=== PATIENT | male | born 1990 | race Caucasian/White ===

== ENCOUNTER 2019-08-02 10:30 | Inpatient (IN) | payer MEDICAID ==
[~2019-08-02] VITALS: Ht 167.6 cm; Wt 121.6 kg
[2019-08-02 10:39] VITALS: BP 141/105
--- NOTE | 2019-08-02 10:40 | NUR ---
Patient ambulated to bed 11. RN evaluating patient at bedside.
[2019-08-02] MEDS ORDERED: NACL 0.9% 2,000 ML IV ONE (10:44)
--- NOTE | 2019-08-02 10:55 | NUR ---
ERMD AT BEDSIDE
--- NOTE | 2019-08-02 10:55 | NUR ---
29 Y/O M C/C POLYDIPSIA X 3 WEEKS; POLYURIA X 2 WEEKS. PT PRESENTS IN NO DISTRESS, BLOOD SUGAR CRITICAL IN TRIAGE, ERMD NOTIFIED. DENIES FAMILY HX OF DM. NKA. NO HX. NO RX. NO NVD. SIDE RAIL X1.
--- NOTE | 2019-08-02 11:00 | NUR ---
LAB AT BEDSIDE
[2019-08-02] MEDS ORDERED: DICYCLOMINE HCL LIQUID 20 MG, ALUMINUM HYD/MAG/SIMETHICONE 30 ML, LIDOCAINE VISCOUS 2% ... PO ONE ×3 (11:05)
--- NOTE | 2019-08-02 11:10 | NUR ---
RT AT BEDSIDE
[2019-08-02 11:15] LABS: BASOPHILS # (AUTO) 0.1 K/uL (0.00-0.22); BASOPHILS % (AUTO) 1.6 % (0.0-2.0); EOSINOPHILS % (AUTO) 0.9 % (0.0-4.0); HEMATOCRIT 45.3 % (36-52); HEMOGLOBIN 14.8 g/dL (12.0-18.0); LYMPHOCYTES # (AUTO) 1.8 K/uL (2.0-11.5); MEAN CORPUSCULAR HEMOGLOBIN 28 pg (27-31); MEAN CORPUSCULAR HGB CONC 33 g/dL (33-37); MEAN CORPUSCULAR VOLUME 85.9 fL (80-94); MONOCYTES # (AUTO) 0.5 K/uL (0.8-1.0); MONOCYTES % (AUTO) 10.9 % (1.7-9.3); NEUTROPHILS # (AUTO) 2.3 K/uL (1.8-7.7); NEUTROPHILS % (AUTO) 48.6 % (42.2-75.2); PLATELET COUNT (AUTO) 214 K/uL (140-450); RED BLOOD CELL COUNT(AUTO) 5.27 MIL/uL (4.20-6.10); RED CELL DISTRIBUTION WIDTH 14.5 % (11.6-13.7); WHITE BLOOD COUNT (AUTO) 4.6 K/uL (4.8-10.8)
--- NOTE | 2019-08-02 11:35 | NUR ---
PT AMBULATED TO RESTROOM
--- NOTE | 2019-08-02 11:39 | NUR ---
PT RESTING IN BED, SIDE RAIL X1
[2019-08-02 11:41] LABS: ALBUMIN 3.9 g/dL (3.4-5.0); CARBON DIOXIDE 30.8 mmol/L (21-32); CREATININE 1.2 mg/dL (0.6-1.3); MAGNESIUM 1.9 mg/dL (1.8-2.4); PHOSPHORUS 5.5 mg/dL (2.5-4.9); POTASSIUM 4.8 mmol/L (3.5-5.1); TOTAL BILIRUBIN 0.8 mg/dL (0.0-1.0)
[2019-08-02 11:50] LABS: BILIRUBIN,URINE NEGATIVE (NEGATIVE); BLOOD, URINE TRACE-L (NEGATIVE); COLOR,URINE YELLOW (YELLOW); LEUKOCYTE ESTERASE ,URINE NEGATIVE (NEGATIVE); NITRITE, URINE NEGATIVE (NEGATIVE); UGLUCOSE 3+ (NEGATIVE)
[2019-08-02 11:51] LABS: APPEARANCE,URINE SLIGHTLY HAZY (CLEAR)
[2019-08-02 11:58] LABS: RBC,URINE 0-5 /HPF (0-5); WBC,URINE 0-5 /HPF (0-5)
[2019-08-02] MEDS ORDERED: INSULIN REGULAR, HUMAN 100 UNIT/ML VIAL IV ONE (12:25)
[2019-08-02] MEDS ORDERED: DOCUSATE SODIUM 100 MG GELCAP PO PRN (12:40)
[2019-08-02] MEDS ORDERED: ONDANSETRON 4 MG/2 ML VIAL IM/IVP PRN (12:40)
[2019-08-02] MEDS ORDERED: ACETAMINOPHEN 325 MG TAB PO PRN (12:40)
[2019-08-02] MEDS ORDERED: DEXTROSE 50% 50 ML SYR IVP PRN (12:45)
[2019-08-02] MEDS: CLOTRIMAZOLE 1% 30 GM CRM TUBE TP SCH (12:48)
--- NOTE | 2019-08-02 12:49 | NUR ---
GREGORIO ENDORSED TO MST NURSE ; PT EN ROUTE TO MST. PHARMACIST CALLED FOR MEDICATION WILL BE INPUT THE PT CASSETTE.
--- NOTE | 2019-08-02 12:59 | NUR ---
Patient will be admitted to care of [facility]. Admited to MS. Will go to room 106B. Belongings list completed. Report to MINDY BLACKBURN.
[2019-08-02 13:00] VITALS: BP 152/90
--- NOTE | 2019-08-02 13:00 | NUR ---
PATIENT ARRIVED FROM THE ED VIA WHEELCHAIR. RECIEVED REPORT FROM ALEXEY CARRASCO. PATIENT AMBULATED TO THE BED. PATIENT IS ALERT AND ORIENTED X4. INTRODUCED SELF. PLANS OF CARE DISCUSSED WITH NURSE AND PATIENT. IV INTACT AND PATENT TO LEFT AND RIGHT AC. ADMIT ORDERS NOTED. PATIENT ORIENTED TO STAFF AND ROOM. CALL LIGHT WITHIN REACH.
--- NOTE | 2019-08-02 13:10 | NUR ---
DR. HERNANDEZ AT BEDSIDE. Addendum: 08/02/19 at 1344 by Stevie Portillo RN BG CHECKED READING HI >600.
--- NOTE | 2019-08-02 13:15 | NUR ---
UPON INITIAL ASSESSMENT, NOTED THAT PATIENT HAS GENERALIZED BODY RASH DRY, INTACT AND DRY SCRATCH LIKE SANCHEZ TO PENILE AREA. DR. FORD AT BEDSIDE ALSO.
[2019-08-02] MEDS: NACL 0.9% 1,000 ML IV SCH ×4 (13:22→22:07)
[2019-08-02 13:32] LABS: FREE T4 (FREE THYROXINE) 1.9 ng/dL (0.76-1.46); PROTHROMBIN TIME 9.5 secs (10.8-13.4); THYROID STIMULATING HORMONE 2.44 uIU/mL (0.34-3.74)
--- NOTE | 2019-08-02 13:45 | NUR ---
BG 533, NOTIFIED DR. HERNANDEZ, SHE WILL PLACE ORDERS.
--- NOTE | 2019-08-02 13:50 | NUR ---
PER DR. HERNANDEZ GIVE 12 UNITS OF HUMALOG INSULIN NOW.
[2019-08-02] MEDS: INSULIN LISPRO SLIDING SCALE 100 UNITS/ML VIAL SUBQ PRN ×3 (13:52→21:59)
[2019-08-02] MEDS ORDERED: INSULIN LANTUS 100 UNITS/ML 10 ML VIAL SUBQ SCH ×3 (14:30→21:00)
--- NOTE | 2019-08-02 15:00 | NUR ---
BG RECHECKED, 451. BG IS TRENDING DOWN. IVF CONTINUED AT 250ML/HR. TOLERATING WELL. WILL CONTINUE TO MONITOR.
[2019-08-02 16:00] VITALS: BP 144/95
[2019-08-02] MEDS ORDERED: metFORMIN 850 MG TAB PO SCH ×2 (16:15→21:00)
--- NOTE | 2019-08-02 16:50 | NUR ---
BG CHECKED, 359. HUMALOG 10 UNITS WILL BE GIVEN ORDERED PER SLIDING SCALE. DR. FORD AT BEDSIDE. UPON SKIN ASSESSMENT WITH , OBSERVED PENILE SCRATCH LIKE, STATED PATIENT NEED TO BE REFERRED TO UROLOGIST.
[2019-08-02] MEDS: BLOOD GLUCOSE MONITORING 1 DEV DEV FS SCH ×2 (17:01→21:58)
[2019-08-02 17:36] LABS: ANION GAP 15.6 (8-16); CARBON DIOXIDE 26.2 mmol/L (21-32); CREATININE 0.9 mg/dL (0.6-1.3); POTASSIUM 3.8 mmol/L (3.5-5.1)
[2019-08-02 17:41] LABS: MAGNESIUM 1.8 mg/dL (1.8-2.4); PHOSPHORUS 3.5 mg/dL (2.5-4.9)
--- NOTE | 2019-08-02 18:20 | NUR ---
VBG DRAWN AND RESULTS WERE GIVEN TO DR CAMPBELL
--- NOTE | 2019-08-02 18:59 | NUR ---
PATIENT IN STABLE CONDITION WILL ENDORSE TO NIGHT NURSE FOR CONTINUITY OF CARE.
--- NOTE | 2019-08-02 19:05 | NUR ---
RECD. RESTING IN BED, AWAKE, A/OX4, OBESE. RESPIRATION EVEN AND UNLABORED. IV OF NS AT 250 ML/HR INFUSING LEFT AC G18. WATCHING TV. PLEASANT AND INDEPENDENT. WITH HEALING RASHES IN THE BODY. DENIES ITCHINESS. PLAN OF CARE FOR THE SHIFT DISCUSSED. VERBALIZED UNDERSTANDING. DENIES PAIN 0/10.
--- NOTE | 2019-08-02 19:45 | NUR ---
JUST FINISHED EATING HIS DINNER, ATE 100%.
--- NOTE | 2019-08-02 21:58 | NUR ---
BS CHECKED -411. INQUIRED ON DR. LUNDBERG HOW MUCH REGULAR INSULIN TO GIVE TO PATIENT. MEDICATED WITH REGULAR INSULIN 10 UNITS SUB-Q LEFT ARM PER MD ORDER. DIABETIC TEACHING ON IMPORTANCE OF DIET AND EXERCISE TO CONTROL BLOOD SUGAR AND FOOT CARE. VERBALIZED UNDERSTANDING.
[2019-08-03] VITALS: BP 141/99
--- NOTE | 2019-08-03 | NUR ---
SLEEPING COMFORTABLY IN BED.
[2019-08-03] MEDS: NACL 0.9% 1,000 ML IV SCH ×6 (00:41→21:29)
--- NOTE | 2019-08-03 02:00 | NUR ---
REFUSED RIGHT SIDE RAIL TO BE PUT UP, STATED I WILL NOT FALL>
--- NOTE | 2019-08-03 04:00 | NUR ---
STILL SLEEPING COMFORTABLY IN BED.
[2019-08-03 05:00] VITALS: BP 136/91
[2019-08-03 06:13] LABS: BASOPHILS % (AUTO) 0.9 % (0.0-2.0); EOSINOPHILS # (AUTO) 0.1 K/uL (0-0.4); EOSINOPHILS % (AUTO) 2.3 % (0.0-4.0); HEMATOCRIT 39.1 % (36-52); HEMOGLOBIN 13.1 g/dL (12.0-18.0); LYMPHOCYTES # (AUTO) 1.8 K/uL (2.0-11.5); MEAN CORPUSCULAR HEMOGLOBIN 28 pg (27-31); MEAN CORPUSCULAR HGB CONC 33 g/dL (33-37); MEAN CORPUSCULAR VOLUME 83.4 fL (80-94); MONOCYTES # (AUTO) 0.3 K/uL (0.8-1.0); MONOCYTES % (AUTO) 8.1 % (1.7-9.3); NEUTROPHILS % (AUTO) 45.7 % (42.2-75.2); PLATELET COUNT (AUTO) 193 K/uL (140-450); RED BLOOD CELL COUNT(AUTO) 4.68 MIL/uL (4.20-6.10); RED CELL DISTRIBUTION WIDTH 14.7 % (11.6-13.7); WHITE BLOOD COUNT (AUTO) 4.3 K/uL (4.8-10.8)
[2019-08-03 06:41] LABS: CHOL/HDL RATIO 7.5 (1-4.5)
[2019-08-03 06:49] LABS: ALBUMIN 3.2 g/dL (3.4-5.0); ANION GAP 9.7 (8-16); CARBON DIOXIDE 28.9 mmol/L (21-32); CREATININE 0.7 mg/dL (0.6-1.3); MAGNESIUM 1.5 mg/dL (1.8-2.4); PHOSPHORUS 3.2 mg/dL (2.5-4.9); POTASSIUM 3.6 mmol/L (3.5-5.1); TOTAL BILIRUBIN 0.4 mg/dL (0.0-1.0)
[2019-08-03] MEDS: BLOOD GLUCOSE MONITORING 1 DEV DEV FS SCH ×4 (06:50→20:20)
[2019-08-03] MEDS: INSULIN LISPRO SLIDING SCALE 100 UNITS/ML VIAL SUBQ PRN ×4 (06:51→20:31)
--- NOTE | 2019-08-03 07:00 | NUR ---
CONDITION REMAIN STABLE. BLOOD SUGAR TRENDING DOWN, 259, REGULAR INSULIN OF 6 UNITS GIVEN PER MD ORDER. WILL ENDORSE TO AM SHIFT NURSE FOR CONTINUITY OF CARE.
--- NOTE | 2019-08-03 07:10 | NUR ---
RECEIVED REPORT FROM NIGHT NURSE PT IS AAOX4, ON ROOM AIR , SKIN INTACT, NO DISTRESS NOTED, IV SITES INTACT AND PATENT ON LEFT AND RIGHT AC G 18. SAFETY MEASURES IN PLACE, CALL LIGHT WITHIN REACH. WILL CONTINUE TO MONITOR.
[2019-08-03] MEDS ORDERED: metFORMIN 850 MG TAB PO SCH (08:00)
[2019-08-03] MEDS: CLOTRIMAZOLE 1% 30 GM CRM TUBE TP SCH (08:42)
[2019-08-03] MEDS: metFORMIN 500 MG TAB PO SCH ×3 (08:42→16:49)
--- NOTE | 2019-08-03 09:00 | NUR ---
MEDICATIONS DUE GIVEN TO PT AT THIS TIME, NO DISTRESS NOTED AND DENIES PAIN. SAFETY MEASURES IN PLACE AND CALL LIGHT WITHIN REACH. WILL CONTINUE TO MONITOR.
--- NOTE | 2019-08-03 09:06 | NUR ---
PATIENT HAS BEEN SCREENED AND CATEGORIZED HIGH NUTRITION RISK. PATIENT WILL BE SEEN WITHIN 1-2 DAYS OF ADMISSION. 08/03/19-08/04/[address]
[2019-08-03] MEDS ORDERED: MAGNESIUM OXIDE 400 MG TAB PO SCH (10:30)
--- NOTE | 2019-08-03 11:23 | NUR ---
DISCHARGE PLANNING: THIS IS A 29 Y/O MALE PATIENT FROM HOME, WHO CAM IN DUE TO INCREASED URINATION AND THIRST. PAST MEDICAL HISTORY INCLUDE MORBID OBESITY. INITIAL DIAGNOSIS OF NEW ONSET DM. CURRENT LABS INCLUDE WBC 4.3, H/H 13.1/39.1, NA/K 135/3.6, BUN/CREA 10/0.7, ALB 3.2 GLU 259. HEP PANEL PENDING. HIV 1-AB RAPID SCREEN NON REACTIVE. ON INSULIN SLIDING SCALE. CXR ON ADMISSION NEGATIVE. ID AND ENDO CONSULTS IN PLACE. DC PLAN BACK TO HOME ONCE STABLE.
--- NOTE | 2019-08-03 11:30 | NUR ---
BLOOD SUGAR MONITORING DONE BLOOD SUGAR AT 349 MG/DL AND INSULIN COVERAGE GIVEN AT 8 UNITS. MEDICATION DUE GIVEN. SAFETY MEASURES IN PLACE CALL LIGHT WITHIN REACH. WILL CONTINUE TO MONITOR.
--- NOTE | 2019-08-03 12:23 | NUR ---
CULTURE OF PENILE DISCHARGE TAKEN AT THIS TIME, PT IS COOPERATIVE . SAFETY MEASURES IN PLACE CALL LIGHT WITHIN REACH. WILL CONTINUE TO MONITOR.
[2019-08-03 13:00] VITALS: BP 144/107
[2019-08-03] MEDS: HYDROCHLOROTHIAZIDE 25 MG TAB PO SCH (14:10)
--- NOTE | 2019-08-03 14:10 | NUR ---
[facility] NOTE: Basic Screen: Yes High Risk DC Screen Elverta: AMARILIS Osorio Relationship: MOTHER Pre-Admission Living Arrangements: Lives with Other Prior ADL Independent Current Home Health Name/Tel: N/A Current DME/02 Name/Tel: N/A Current Hospice Name/Tel: N/A Current Dialysis Name/Tel: N/A Healthcare Decision Maker: Patient Advance Directive No Physician Orders for Life Sustaining Treatment Form No Patient/Family Have Educational Needs No Discipline: Case Mgt/Social Svcs Tentative Discharge Plan/Destination: No Needs Identified Will require assistance post discharge: No Referred to Car Clerk [place]: No Tentative Discharge Plan Summary: PATIENT IS A 29-YEAR-OLD MALE ADMITTED FOR NEW ONSET DM. PATIENT AHS PMHX OF MORBID OBESITY. PATIENT WAS ADMITTED FROM HOME WHERE HE LIVES WITH PARENTS. SW MET WITH PATIENT AT BEDSIDE TO VERIFY DEMOGRAPHICS. PATIENT STATED THAT HE IS INDEPENDENT WITH ALL ADLS AND REPORTS NO HISTORY OF SUBSTANCE ABUSE OR MENTAL HEALTH. TENTATIVE DISCHARGE PLAN IS FOR PATIENT TO RETURN HOME. NO FURTHER NEEDS IDENTIFIED. Signature: SHEA JANG Date: Aug 03, 2019 Time: 14:09
--- NOTE | 2019-08-03 14:16 | NUR ---
MEDICATIONS DUE GIVEN, INFORMED BP 153/107 WI 97.
[2019-08-03] MEDS: glipiZIDE 5 MG TAB PO SCH (16:49)
--- NOTE | 2019-08-03 16:57 | NUR ---
MEDICATIONS DUE GIVEN, PT IS STABLE AND COMFORTABLY SLEEPING. WILL CONTINUE TO MONITOR.
--- NOTE | 2019-08-03 19:20 | NUR ---
ENDORSED PT TO NIGHT NURSE FOR CONTINUITY OF CARE. PT IS STABLE
--- NOTE | 2019-08-03 19:21 | NUR ---
RECEIVED REPORT FROM DAY SHIFT NURSE. PT IN BED RESTING. PT IS AWAKE, ALERT, AND ORIENTED X4. AMBULATORY. ABLE TO MAKE NEEDS KNOWN. RESPIRATIONS ARE EVEN AND UNLABORED TO ROOM AIR. SKIN IS WARM AND DRY. WITH RASHES NOTED ON INNER THIGH AREA. ABDOMEN IS SOFT AND NON-TENDER. IV ACCESS ON BOTH RIGHT AND LEFT AC CLEAN AND INTACT. DENIES ANY PAIN OR DISCOMFORT AT THIS TIME. PLAN OF CARE DISCUSSED. PT VERBALIZED UNDERSTANDING. SAFETY MEASURES IN PLACE. CALL LIGHT WITHIN REACH. WILL CONTINUE TO MONITOR.
[2019-08-03] MEDS: TRIAMCINOLONE 0.1% CRM 15 GM TUBE TP SCH (20:21)
--- NOTE | 2019-08-03 20:33 | NUR ---
BLOOD SUGAR 288. INSULIN COVERAGE GIVEN. SCHEDULED MEDS GIVEN WELL. IV ACCESS ON LEFT ARM REMOVED PER PT REQUEST. PT NOT IN DISTRESS. CALL LIGHT WITHIN REACH. WILL CONTINUE TO MONITOR.
--- NOTE | 2019-08-03 22:19 | NUR ---
PT IN BED USING PHONE. DENIES ANY DISCOMFORT AT THIS TIME. NO REQUESTS MADE. KEPT COMFORTABLE. CALL LIGHT WITHIN REACH. WILL CONTINUE TO MONITOR.
[2019-08-04] VITALS: BP 131/80
--- NOTE | 2019-08-04 00:03 | NUR ---
VITAL SIGNS STABLE. PT IN BED USING PHONE. NO S/SX OF DISTRESS. DENIES ANY DISCOMFORT. NO REQUESTS MADE AT THIS TIME. KEPT COMFORTABLE. CALL LIGHT WITHIN REACH. WILL CONTINUE TO MONITOR.
--- NOTE | 2019-08-04 01:52 | NUR ---
PT IN BED SLEEPING. NO S/SX OF DISTRESS NOTED. WITH VISIBLE CHEST RISE AND FALL. SAFETY MEASURES IN PLACE. CALL LIGHT WITHIN REACH. WILL CONTINUE TO MONITOR.
[2019-08-04 03:15] LABS: BARBITURATE, URINE NEGATIVE ng/ml (NEG <=200); BENZODIAZEPINE, URINE NEGATIVE ng/mL (NEG <=200); CANNABINOID, URINE NEGATIVE ng/mL (NEG <=50); COCAINE, URINE NEGATIVE ng/mL (NEG <=300); OPIATE, URINE NEGATIVE ng/mL (NEG <=2000); PHENCYCLIDINE SCREEN,URINE NEGATIVE ng/mL (NEG <=25)
--- NOTE | 2019-08-04 03:52 | NUR ---
NEW BAG OF IVF HANGED. PT ASLEEP. NOT IN DISTRESS. CALL LIGHT WITHIN REACH. WILL CONTINUE TO MONITOR.
[2019-08-04] MEDS: BLOOD GLUCOSE MONITORING 1 DEV DEV FS SCH ×2 (06:00→11:37)
[2019-08-04] MEDS: INSULIN LISPRO SLIDING SCALE 100 UNITS/ML VIAL SUBQ PRN ×2 (06:02→12:08)
--- NOTE | 2019-08-04 06:03 | NUR ---
BLOOD SUGAR 216. INSULIN COVERAGE GIVEN ORDERED. WILL CONTINUE TO MONITOR.
[2019-08-04 06:27] LABS: HEPATITIS A ANTIBODY IGM Negative (Negative); HEPATITIS B CORE AB TOTAL Negative (Negative); HEPATITIS B SURFACE ANTIBODY Reactive (.); HEPATITIS B SURFACE ANTIGEN Negative (Negative)
[2019-08-04] MEDS: glipiZIDE 5 MG TAB PO SCH (06:35)
--- NOTE | 2019-08-04 07:05 | NUR ---
RECEIVED PATIENT FROM [facility]FFER AUTOMATIC NURSE FOR CONTINUITY OF CARE. PATIENT IS AAOX4. MOHAWK SPEAKING. RESPIRATIONS EVEN AND UNLABORED, ROOM AIR. VISIBLE CHEST RISE AND FALL NOTED. ON MED-SURGE. ABDOMEN SOFT AND NONTENDER. ON CCHO 60 GM DIET. SKIN WARM AND DRY. RASHES ALL OVER THE BODY. IV ON RIGHT AC G20, RUNNING NS AT 60 ML/HR. NO SIGNS OF IV INFILTRATION NOTED. IVF RUNNING WELL. UNIVERSAL FALL PRECAUTION. BED IN LOW POSITION. CALL LIGHT IS WITHIN REACH. WILL CONTINUE TO MONITOR.
--- NOTE | 2019-08-04 07:22 | NUR ---
ENDORSED TO DAY SHIFT NURSE FOR CONTINUITY OF CARE. PATIENT IN STABLE CONDITION.
[2019-08-04 08:00] VITALS: BP 124/80
[2019-08-04] MEDS ORDERED: LISI2.5T12 PO (08:05)
[2019-08-04] MEDS ORDERED: METF500T PO (08:05)
[2019-08-04] MEDS ORDERED: KEN.1C TP (08:05)
[2019-08-04] MEDS ORDERED: ASPI-1822 PO (08:05)
[2019-08-04] MEDS ORDERED: ATOR40TA PO (08:05)
[2019-08-04] MEDS ORDERED: GLIP5TAB13 PO (08:05)
[2019-08-04] MEDS: HYDROCHLOROTHIAZIDE 25 MG TAB PO SCH (09:00)
[2019-08-04] MEDS: metFORMIN 500 MG TAB PO SCH ×2 (09:00→11:40)
--- NOTE | 2019-08-04 09:00 | NUR ---
GIVEN MORNING MEDICATIONS PO. KENALOG IN BILAT THIGHS. EXPLAINED MEDICATIONS. PATIENT VERBALIZED UNDERSTANDING. BED IN LOW POSITION. CALL LIGHT IS WITHIN REACH. WILL CONTINUE TO MONITOR.
[2019-08-04] MEDS: TRIAMCINOLONE 0.1% CRM 15 GM TUBE TP SCH (09:02)
[2019-08-04 10:00] VITALS: BP 124/80
--- NOTE | 2019-08-04 11:00 | NUR ---
GIVEN DISCHARGE INSTRUCTIONS. EXPLAINED WHAT PATIENT CAN EAT. DEMONSTRATED HOW TO CHECK BLOOD SUGAR WITH ACCUCHECK. PATIENT VERBALIZED UNDERSTANDING. EXPLAINED THAT THE DOCTOR PRESCRIBED HIM GLIPIZIDE, LIPITOR, METFORMIN, AND LISINOPRIL AND THAT THEY ARE SENT OUT TO THE PHARMACY HE GOES TO. EXPLAINED THAT HE NEEDS TO FOLLOW UP WITH HIS PCP WITHIN 3-5 DAYS OR MAKE AN APPT WITH [facility] IN [place]. PATIENT VERBALIZED UNDERSTANDING. NO FURTHER QUESTIONS ASKED, PATIENT SIGNED DISCHARGE PAPERWORK.
--- NOTE | 2019-08-04 11:20 | NUR ---
NUTRITION EDUCATION ABOUT DIABETES WAS PROVIDED TO PATIENT BEFORE DISCHARGE. ONI SMITH RD
--- NOTE | 2019-08-04 11:39 | NUR ---
BLOOD SUGAR CHECK: 328. WILL GIVE INSULIN COVERAGE. GIVEN METFORMIN PO. EXPLAINED MEDICATION. PATIENT VERBALIZED UNDERSTANDING.
--- NOTE | 2019-08-04 11:40 | NUR ---
PATIENT REFUSED PNA AND FLU VACCINES.
--- NOTE | 2019-08-04 11:48 | NUR ---
DISCONTINUED IV SITE. MINIMAL BLEEDING. COVERED WITH 2X2 AND TAPED. REMOVED ID BAND.
--- NOTE | 2019-08-04 11:55 | NUR ---
DISCHARGED PATIENT ON FOOT. PATIENT DENIES PAIN, SOB. PATIENT IS IN STABLE CONDITION
--- NOTE | 2019-08-04 12:08 | NUR ---
WAS NOT ABLE TO ADMINISTER INSULIN DUE TO PATIENT WAS DISCHARGED.
[2019-08-06 06:15] LABS: CHLAMYDIA TRACHOMATIS AMP DNA Negative (Negative)
[2019-08-07] MEDS ORDERED: BACTO TP (14:07)
[2019-08-07] MEDS ORDERED: FLUC150T PO (14:07)
[2019-08-07] MEDS ORDERED: CEPH500C16 PO (14:07)
== END 2019-08-04 11:55 | disposition home or self-care (01) | DRG 420 ==
LOC: MED 10:30 → MTU 12:26
PROVIDERS: ADMIT General Practice; ATTEND General Practice
DX: E11.00 Type 2 diabetes mellitus with hyperosmolarity without nonketotic hyperglycemic-hyperosmolar coma (NKHHC) (principal); E66.01 Morbid (severe) obesity due to excess calories; E88.81 Metabolic syndrome and other insulin resistance; K76.0 Fatty (change of) liver, not elsewhere classified; E83.39 Other disorders of phosphorus metabolism; E87.1 Hypo-osmolality and hyponatremia; E78.1 Pure hyperglyceridemia; E86.0 Dehydration; N48.1 Balanitis; E78.5 Hyperlipidemia, unspecified; E83.42 Hypomagnesemia; L56.8 Other specified acute skin changes due to ultraviolet radiation; N48.5 Ulcer of penis; Z83.3 Family history of diabetes mellitus; Z68.41 Body mass index [BMI] 40.0-44.9, adult
CPT/HCPCS: 36415; 71045; 80048; 80053; 80305; 81001; 82150; 82948; 83036; 83605; 83690; 83735; 83880; 84100; 84134; 84439; 84443; 84484; 85025; 85610; 85730; 86592; 86704; 86706; 86708; 86709; 86803; 87040; 87070; 87081; 87340; 87491; 96361; 96374; 99285; J1644; J1815; J7030; Q0092

== ENCOUNTER 2020-03-02 10:34 | Emergency (ER) | payer MEDICAID, SELFPAY ==
[~2020-03-02] VITALS: Ht 167.6 cm; Wt 110.2 kg
[~2020-03-02 10:34] MED LIST: ASPI-1822 PO; ATOR40TA PO; BACTO TP; CEPH500C16 PO; FLUC150T PO; GLIP5TAB13 PO; KEN.1C TP; LISI2.5T12 PO; METF500T PO
--- NOTE | 2020-03-02 10:49 | NUR ---
CALLED PT FOR TRIAGE. NO ANSWER.
[2020-03-02 11:23] VITALS: BP 130/86
--- NOTE | 2020-03-02 11:23 | NUR ---
PT LEFT IN COVID TENT TO WAIT FOR MSE.
--- NOTE | 2020-03-02 11:26 | NUR ---
PT STATES HE WAS TESTED SATURDAY FOR COVID AND WAS NEGATIVE.
[2020-03-02 12:03] LABS: BASOPHILS # (AUTO) 0.1 K/uL (0.00-0.22); EOSINOPHILS % (AUTO) 0.6 % (0.0-4.0); HEMATOCRIT 45.7 % (36-52); LYMPHOCYTES # (AUTO) 2.1 K/uL (2.0-11.5); LYMPHOCYTES % (AUTO) 30.7 % (20.5-51.1); MEAN CORPUSCULAR HEMOGLOBIN 28 pg (27-31); MEAN CORPUSCULAR HGB CONC 33 g/dL (33-37); MEAN CORPUSCULAR VOLUME 84.1 fL (80-94); MONOCYTES # (AUTO) 0.8 K/uL (0.8-1.0); MONOCYTES % (AUTO) 11.1 % (1.7-9.3); NEUTROPHILS # (AUTO) 3.8 K/uL (1.8-7.7); NEUTROPHILS % (AUTO) 56.6 % (42.2-75.2); PLATELET COUNT (AUTO) 290 K/uL (140-450); RED BLOOD CELL COUNT(AUTO) 5.44 MIL/uL (4.20-6.10); RED CELL DISTRIBUTION WIDTH 16.4 % (11.6-13.7); WHITE BLOOD COUNT (AUTO) 6.8 K/uL (4.8-10.8)
[2020-03-02 13:14] LABS: ALBUMIN 3.9 g/dL (3.4-5.0); ANION GAP 19.8 (8-16); CARBON DIOXIDE 19.5 mmol/L (21-32); CREATININE 1.1 mg/dL (0.6-1.3); POTASSIUM 4.3 mmol/L (3.5-5.1); TOTAL BILIRUBIN 0.7 mg/dL (0.0-1.0)
[2020-03-02] MEDS ORDERED: INSULIN REGULAR, HUMAN 100 UNIT/ML VIAL SUBQ ONE (13:20)
--- NOTE | 2020-03-02 16:14 | NUR ---
PT D/C BY DR. OWEN.
== END 2020-03-02 16:14 | disposition home or self-care (01) ==
LOC: MED 10:34
DX: E83.52 Hypercalcemia (principal); R00.2 Palpitations; R07.89 Other chest pain; E11.9 Type 2 diabetes mellitus without complications; Z91.14 Patient's other noncompliance with medication regimen; Z79.84 Long term (current) use of oral hypoglycemic drugs; Z79.899 Other long term (current) drug therapy; Z79.82 Long term (current) use of aspirin
CPT/HCPCS: 36415; 71045; 80053; 84484; 85025; 93005; 96372; 99285; J1815

== ENCOUNTER 2020-06-02 18:29 | Emergency (ER) | payer OTHER ==
[~2020-06-02] VITALS: Ht 167.6 cm; Wt 99.3 kg
[2020-06-02 18:35] VITALS: BP 131/59
[2020-06-02 19:18] LABS: BASOPHILS # (AUTO) 0.1 K/uL (0.00-0.22); EOSINOPHILS # (AUTO) 0.1 K/uL (0-0.4); HEMATOCRIT 38.3 % (36-52); HEMOGLOBIN 12.6 g/dL (12.0-18.0); WHITE BLOOD COUNT (AUTO) 3.9 K/uL (4.8-10.8)
[2020-06-02 19:24] LABS: BASOPHILS % (AUTO) 2.2 % (0.0-2.0); EOSINOPHILS % (AUTO) 1.5 % (0.0-4.0); LYMPHOCYTES # (AUTO) 1.5 K/uL (2.0-11.5); LYMPHOCYTES % (AUTO) 38.3 % (20.5-51.1); MEAN CORPUSCULAR HEMOGLOBIN 28 pg (27-31); MEAN CORPUSCULAR HGB CONC 33 g/dL (33-37); MEAN CORPUSCULAR VOLUME 85.6 fL (80-94); MONOCYTES # (AUTO) 0.3 K/uL (0.8-1.0); MONOCYTES % (AUTO) 7.6 % (1.7-9.3); NEUTROPHILS % (AUTO) 50.4 % (42.2-75.2); PLATELET COUNT (AUTO) 195 K/uL (140-450); RED BLOOD CELL COUNT(AUTO) 4.48 MIL/uL (4.20-6.10); RED CELL DISTRIBUTION WIDTH 14.8 % (11.6-13.7)
[2020-06-02 19:28] LABS: ANION GAP 9.5 (8-16); CARBON DIOXIDE 29.1 mmol/L (21-32); CREATININE 0.9 mg/dL (0.6-1.3); POTASSIUM 3.6 mmol/L (3.5-5.1)
[2020-06-02 20:30] VITALS: BP 131/59
== END 2020-06-02 20:30 | disposition home or self-care (01) ==
LOC: MED 18:29
DX: H53.8 Other visual disturbances (principal); E11.65 Type 2 diabetes mellitus with hyperglycemia; Z79.84 Long term (current) use of oral hypoglycemic drugs; Z79.899 Other long term (current) drug therapy; Z79.82 Long term (current) use of aspirin
CPT/HCPCS: 36415; 80048; 83930; 85025; 99283

== ENCOUNTER 2021-01-11 13:56 | Emergency (ER) | payer SELFPAY ==
[~2021-01-11] VITALS: Ht 167.6 cm; Wt 103.6 kg
[2021-01-11 14:02] VITALS: BP 128/92
--- NOTE | 2021-01-11 14:38 | NUR ---
20 G IV ESTABLIHSED IN R AC. BLOOD WORK COLLECTED AND WALKED OVER TO LAB
[2021-01-11] MEDS ORDERED: NACL 0.9% 1,000 ML IV ONE (14:40)
--- NOTE | 2021-01-11 14:41 | NUR ---
30 Y MALE FROM HOME WITH C/O URINARY FREQUENCY X2 DAYS. PT STATED HE HAS NOT CHECKED HIS SUGAR LEVELS THIS WEEK DUE TO RUNNING OUT OF SUPPLIES. PT ALSO STATED HE HAS RUN OUT OF HIS MEDICATION X1 MONTH AGO. PER PT HE HAS HAD POLYURIA, DYSURIA, AND HESISTANCY WHEN URIANTING. DENIES ANY FOUL ODOR AT THIS TIME. CURRENT BLOOD SUGAR 432 AT THIS TIME. PMH: MARGY FUENTES
[2021-01-11 14:47] LABS: BASOPHILS % (AUTO) 0.9 % (0.0-2.0); EOSINOPHILS # (AUTO) 0.1 K/uL (0-0.4); EOSINOPHILS % (AUTO) 1.8 % (0.0-4.0); HEMATOCRIT 38.8 % (36-52); LYMPHOCYTES # (AUTO) 1.1 K/uL (2.0-11.5); LYMPHOCYTES % (AUTO) 38.3 % (20.5-51.1); MEAN CORPUSCULAR HEMOGLOBIN 28 pg (27-31); MEAN CORPUSCULAR HGB CONC 34 g/dL (33-37); MEAN CORPUSCULAR VOLUME 83.9 fL (80-94); MONOCYTES # (AUTO) 0.4 K/uL (0.8-1.0); MONOCYTES % (AUTO) 14.3 % (1.7-9.3); NEUTROPHILS # (AUTO) 1.3 K/uL (1.8-7.7); NEUTROPHILS % (AUTO) 44.7 % (42.2-75.2); PLATELET COUNT (AUTO) 167 K/uL (140-450); RED BLOOD CELL COUNT(AUTO) 4.63 MIL/uL (4.20-6.10); RED CELL DISTRIBUTION WIDTH 14.5 % (11.6-13.7); WHITE BLOOD COUNT (AUTO) 2.8 K/uL (4.8-10.8)
--- NOTE | 2021-01-11 14:52 | NUR ---
DR. KRUEGER BEDSIDE EVALUATING PT
[2021-01-11 14:56] LABS: ANION GAP 14.1 (8-16); CREATININE 0.9 mg/dL (0.6-1.3); POTASSIUM 4.1 mmol/L (3.5-5.1)
[2021-01-11 15:21] LABS: APPEARANCE,URINE CLEAR (CLEAR); BILIRUBIN,URINE 1+ (NEGATIVE); BLOOD, URINE NEGATIVE (NEGATIVE); COLOR,URINE YELLOW (YELLOW); LEUKOCYTE ESTERASE ,URINE NEGATIVE (NEGATIVE); NITRITE, URINE NEGATIVE (NEGATIVE); UGLUCOSE NEGATIVE (NEGATIVE)
[2021-01-11] MEDS ORDERED: BACTO TP (15:22)
[2021-01-11] MEDS ORDERED: METF-1022 PO (15:22)
[2021-01-11] MEDS ORDERED: CLOT1CRE90 TP (15:22)
[2021-01-11] MEDS ORDERED: BLOO1STR62 MC (15:23)
[2021-01-11] MEDS ORDERED: LANC-886 TP (15:23)
[2021-01-11] MEDS ORDERED: INSULIN REGULAR, HUMAN 100 UNIT/ML VIAL SUBQ SCH (15:50)
--- NOTE | 2021-01-11 16:10 | NUR ---
Patient discharged with v/s stable. Written and verbal after care instructions given and explained. Patient alert, oriented and verbalized understanding of instructions. Ambulatory with steady gait. All questions addressed prior to discharge. ID band removed. Patient advised to follow up with PMD. Rx of MUPIROCIN, GLUCOSE TEST STRIP. CLOTRIMAZOLE, LANCETS, AND METFORMIN given. Patient educated on indication of medication including possible reaction and side effects. Opportunity to ask questions provided and answered.
[2021-01-11 16:11] VITALS: BP 153/80
== END 2021-01-11 16:11 | disposition home or self-care (01) ==
LOC: MED 13:56
DX: N48.1 Balanitis (principal); E11.65 Type 2 diabetes mellitus with hyperglycemia; M25.562 Pain in left knee; G89.29 Other chronic pain; D72.819 Decreased white blood cell count, unspecified; Z79.84 Long term (current) use of oral hypoglycemic drugs; Z79.899 Other long term (current) drug therapy; Z79.82 Long term (current) use of aspirin
CPT/HCPCS: 36415; 80048; 81003; 82009; 85025; 96360; 96372; 99283; J7030